=== PATIENT | male | born 1980 | race Caucasian/White ===

== ENCOUNTER 2023-03-22 15:04 | Emergency (ER) | payer BC, OTHER ==
[2023-03-22] MEDS ORDERED: Lidocaine 1% 10 ML MDV INJECT ONE (15:40)
[2023-03-22] MEDS ORDERED: Diphtheria,Pertussis(Acell),Tetanus Vaccine 0.5 ML Syringe IM ONE (15:46)
== END 2023-03-22 16:46 | disposition home or self-care (01) ==
LOC: JD.ED 15:04
DX: S61.512A Laceration without foreign body of left wrist, initial encounter (principal); I10 Essential (primary) hypertension; Z23 Encounter for immunization; Z79.899 Other long term (current) drug therapy; W26.8XXA Contact with other sharp object(s), not elsewhere classified, initial encounter
CPT/HCPCS: 12002; 99282; J3490

== ENCOUNTER 2023-03-31 18:11 | Emergency (ER) | payer BC, OTHER | END 2023-03-31 18:48 | LOC: JD.ED 18:11 | DX: Z48.02 Encounter for removal of sutures (principal) | CPT/HCPCS: 99281 ==

== ENCOUNTER 2024-12-25 09:21 | Emergency (ER) | payer BC, OTHER ==
[2024-12-25] MEDS: Lidocaine 1% 20 ML MDV INJECT ONE (11:06)
== END 2024-12-25 11:15 | disposition home or self-care (01) ==
LOC: JD.ED 09:21
DX: S61.217A Laceration without foreign body of left little finger without damage to nail, initial encounter (principal); F17.210 Nicotine dependence, cigarettes, uncomplicated; E78.00 Pure hypercholesterolemia, unspecified; Z79.899 Other long term (current) drug therapy; W26.0XXA Contact with knife, initial encounter
CPT/HCPCS: 12001; 99282; J3490